=== PATIENT | male | born 1985 | race Hispanic/Latino ===

== ENCOUNTER 2019-01-01 10:49 | Outpatient (CLI) | payer BC | END 2019-01-01 10:50 | disposition home or self-care (01) | LOC: C.RADIC 10:49 | DX: M79.672 Pain in left foot (principal) ==

== ENCOUNTER 2019-01-31 15:42 | Outpatient (CLI) | payer BC | END 2019-01-31 15:43 | disposition home or self-care (01) | LOC: C.MRIC 15:42 ==